=== PATIENT | female | born 1995 | race Caucasian/White ===

== ENCOUNTER 2018-03-16 11:06 | Emergency (ER) | payer MEDICAID ==
--- NOTE | 2018-03-16 12:01 | ED Physician Documentation ---
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 - Present Medications Home Medications: Ambulatory Orders Medication Instructions Recorded Confirmed Norgestimate-Ethinyl Estradiol DAILY 03/16/18 [[id number] Tablet] - Allergies Allergies/Adverse Reactions: Allergies Allergy/AdvReac Type Severity Reaction Status Date / Time amoxicillin Allergy Unknown Verified 03/16/18 11:14 Penicillins Allergy Unknown Verified 03/16/18 11:14 - Social History Does the pt smoke?: Yes Smoking Status: Current some day smoker Does the pt drink ETOH?: Yes Does the pt have substance abuse?: No Substance Use and Type: Marijuana - Immunizations Immunizations are current?: Yes Results - Vitals Vitals: Vital Signs - 24 hr 03/16/18 11:09 Temperature 36.7 C Heart Rate 74 Respiratory 16 Rate Blood Pressure 135/91 H O2 Saturation 100 Oxygen O2 Source Room air
--- NOTE | 2018-03-16 12:27 | ED Physician Documentation ---
PD HPI NVD - Stated complaint Stated Complaint: VOMITING/ABD PX/FEMALE - Chief complaint Chief Complaint: Abd Pain - History obtained from History obtained from: Patient - History of Present Illness Timing - onset: How many days ago (3) Timing - duration: Days (3) Timing - details: Gradual onset, Still present, Intermittant Associated symptoms: Abdominal pain, Hematemesis (Lastweek had one episode of blood-streaked vomiting), Vaginal bleeding, Vaginal dc (Thin white and was checked for STD which was negative), Other (Intermittent pain with sex since she had a D&C when she was 18 years old). No: Fever, Chest pain, Melena, Hematochezia, Dizzy, Dysuria, Hematuria Improved by: Other Worsened by: Eating (Drinking water and smoking marijuana) Similar symptoms before: Work up / diagnostics (Colonoscopy is 18 years of age and was diagnosed to have IBS) Recently seen: Not recently seen - Additonal information Additional information: 22-year-old female with history of chronic nausea and left upper abdominal pain since she was 18 years old where she had a full workup including a colonoscopy and was diagnosed to have IBS. 3 years ago she was prescribed medical marijuana in [place]. She has not had medical marijuana for over a year. Says she smokes marijuana daily which helps her nausea. She is here today with complaint of nausea, vomiting, diarrhea the past 3 days. She describes the vomiting as watery which by drinking water she feels better. She describes the stool as watery diarrhea with no blood. Last month she had one episode of blood-streaked with her vomiting.Patient also claims 3 months ago she has a different control that was prescribed to her. The past 3 weeks she has been having vaginal bleeding and it stopped 2 days ago she is requesting for test. She states she has been with one sexual partner. But they are not using condoms.She claims she has been having intermittent pain with sex since she had a D&C when she was 18 years old. Review of Systems Ten Systems: 10 systems reviewed and negative Constitutional: denies: Fever, Weight Loss Cardiac: denies: Chest pain / pressure Respiratory: denies: Dyspnea GI: reports: Abdominal Pain, Nausea, Vomiting, Diarrhea, Hematemesis. denies: Constipation, Bloody / black stool : reports: Incontinent, Discharge, Vaginal bleeding, Control. 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 - Present Medications Home Medications: Ambulatory Orders Medication Instructions Recorded Confirmed Norgestimate-Ethinyl Estradiol DAILY 03/16/18 [[id number] Tablet] - Allergies Allergies/Adverse Reactions: Allergies Allergy/AdvReac Type Severity Reaction Status Date / Time amoxicillin Allergy Unknown Verified 03/16/18 11:14 Penicillins Allergy Unknown Verified 03/16/18 11:14 - Social History Does the pt smoke?: Yes Smoking Status: Current some day smoker Does the pt drink ETOH?: Yes Does the pt have substance abuse?: No Substance Use and Type: Marijuana - Immunizations Immunizations are current?: Yes PD ED PE NORMAL - Vitals Vital signs reviewed: Yes - General General: Alert and oriented X 3, No acute distress, Well developed/nourished - HEENT HEENT: Moist mucous membranes, Pharynx benign - Neck Neck: Supple, no meningeal sign - Cardiac Cardiac: RRR, No murmur - Respiratory Respiratory: No respiratory distress, Clear bilaterally - Abdomen Abdomen: Normal bowel sounds, Soft, Non distended, Other (Mild left lower quadrant pain. No rebound no rigidity nor guarding.) - Derm Derm: Warm and dry - Extremities Extremities: No deformity - Neuro Neuro: Alert and oriented X 3 - Psych Psych: Normal mood, Normal affect Results - Vitals Vitals: Vital Signs - 24 hr 03/16/18 11:09 Temperature 36.7 C Heart Rate 74 Respiratory 16 Rate Blood Pressure 135/91 H O2 Saturation 100 Oxygen O2 Source Room air - Labs Labs: Laboratory Tests 03/16/18 03/16/18 03/16/18 12:30 12:30 12:52 WBC 7.2 RBC 4.53 Hgb 13.5 Hct 39.2 MCV 86.5 MCH 29.7 MCHC 34.4 RDW 12.6 Plt Count 280 MPV 7.0 L Neut # (Auto) 4.8 Lymph # (Auto) 1.8 [place] # (Auto) 0.5 Eos # (Auto) 0.1 Baso # (Auto) 0.1 Absolute Nucleated RBC 0.01 Nucleated RBC % 0.1 Sodium Potassium Chloride Carbon Dioxide Anion Gap BUN Creatinine Estimated GFR (MDRD) Glucose Calcium Total Bilirubin AST ALT Alkaline Phosphatase Total Protein Albumin Globulin Albumin/Globulin Ratio Lipase Urine Color YELLOW Urine Clarity CLEAR Urine pH 5.5 Ur Specific [place] >=1.030 H >=1.030 H Urine Protein NEGATIVE Urine Glucose (UA) NEGATIVE Urine Ketones NEGATIVE Urine Occult Blood SMALL H Urine Nitrite NEGATIVE Urine Bilirubin NEGATIVE Urine Urobilinogen 0.2 (NORMAL) Ur Leukocyte Esterase NEGATIVE Urine RBC 0-5 Urine WBC 0-3 Ur Squamous Epith Cells FEW Squamous Urine Bacteria Few Ur Microscopic Review INDICATED Urine Culture Comments NOT INDICATED Urine HCG, Qual NEGATIVE 03/16/18 12:52 WBC RBC Hgb Hct MCV MCH MCHC RDW Plt Count MPV Neut # (Auto) Lymph # (Auto) [place] # (Auto) Eos # (Auto) Baso # (Auto) Absolute Nucleated RBC Nucleated RBC % Sodium 133 L Potassium 3.6 Chloride 103 Carbon Dioxide 23 Anion Gap 7.0 BUN 18 Creatinine 0.9 Estimated GFR (MDRD) 79 L Glucose 88 Calcium 9.2 Total Bilirubin 1.1 H AST 20 ALT 15 Alkaline Phosphatase 39 L Total Protein 7.9 Albumin 4.9 Globulin 3.0 Albumin/Globulin Ratio 1.6 Lipase 32 Urine Color Urine Clarity Urine pH Ur Specific [place] Urine Protein Urine Glucose (UA) Urine Ketones Urine Occult Blood Urine Nitrite Urine Bilirubin Urine Urobilinogen Ur Leukocyte Esterase Urine RBC Urine WBC Ur Squamous Epith Cells Urine Bacteria Ur Microscopic Review Urine Culture Comments Urine HCG, Qual PD MEDICAL DECISION MAKING - ED course Complexity details: reviewed results, re-evaluated patient ([id number] stated feeling better and wants to go home. Abdomen soft and nontender. Patient claims she did not even have to take the Zofran because her nausea went away by itself. Patient does not want to be discharged on Zofran ODT as it makes her more nauseous due to the taste. Patient requesting resources for outpatient mental health and gynecology. She stated she does not want any radiological workup at this time.), considered differential (Chronic nausea,Gastroenteritis, obstruction, , UTI, STD,Dehydration), d/w patient Departure - Departure Disposition: 01 Home, Self Care Clinical Impression: Abdominal pain Qualifiers: Abdominal location: left lower quadrant Qualified Code(s): R10.32 - Left lower quadrant pain Diarrhea Qualifiers: Diarrhea type: unspecified type Qualified Code(s): R19.7 - Diarrhea, unspecified Vomiting Qualifiers: Vomiting type: cyclical vomiting Vomiting Intractability: non-intractable Nausea presence: with nausea Qualified Code(s): G43.A0 - Cyclical vomiting, not intractable Condition: Stable Instructions: ED Abdominal Pain Unkn Cause, ED Diet Vomiting Diarrhea Comments: Follow-up with your primary doctor for reevaluation. Clear liquids today. Advance to brat diet (bananas, rice, applesauce, toast or crackers). Drink fluids and eat in small amounts but frequently. If tolerated advance to bland diet. If worse return to the emergency room.
[2018-03-16] MEDS: SODIUM CHLORIDE 0.9% 1,000 ML IV ONE (12:55)
[2018-03-16 13:01] LABS: BASOPHILS # (AUTO) 0.1 10^3/uL (0.0-0.1); BASOPHILS % (AUTO) 0.7 %; EOSINOPHILS # (AUTO) 0.1 10^3/uL (0.0-0.7); HGB - HEMOGLOBIN 13.5 g/dL (12.0-16.0); LYMPHOCYTES # (AUTO) 1.8 10^3/uL (1.5-3.5); LYMPHOCYTES % (AUTO) 25.4 %; MEAN CORPUSCULAR HEMOGLOBIN 29.7 pg (27.0-31.0); MEAN CORPUSCULAR HGB CONC 34.4 g/dL (32.0-36.0); MEAN CORPUSCULAR VOLUME 86.5 fL (81.0-99.0); MONOCYTES # (AUTO) 0.5 10^3/uL (0.0-1.0); MONOCYTES % (AUTO) 6.7 %; NEUTROPHILS # (AUTO) 4.8 10^3/uL (1.5-6.6); NEUTROPHILS % (AUTO) 66.2 %; PLT - PLATELET COUNT 280 10^3/uL (130-450); RED BLOOD COUNT 4.53 10^6/uL (4.20-5.40); RED CELL DISTRIBUTION WIDTH 12.6 % (12.0-15.0); WHITE BLOOD COUNT 7.2 x10^3/uL (4.8-10.8)
[2018-03-16 13:06] LABS: BILIRUBIN,URINE NEGATIVE (NEGATIVE); GLUCOSE, URINE (UA) NEGATIVE (NEGATIVE); KETONES,URINE (UA) NEGATIVE (NEGATIVE); LEUKOCYTE ESTERASE, URINE NEGATIVE (NEGATIVE); NITRITE,URINE NEGATIVE (NEGATIVE); OCCULT BLOOD,URINE SMALL (NEGATIVE); PH,URINE 5.5 PH (5.0-7.5); PROTEIN,URINE NEGATIVE (NEGATIVE); UROBILINOGEN,URINE 0.2 (NORMAL) E.U./dL (NORMAL)
[2018-03-16 13:07] LABS: CLARITY,URINE CLEAR (CLEAR); HCG UR QUAL NEGATIVE
[2018-03-16 13:13] LABS: ALBUMIN 4.9 g/dL (3.2-5.5); ALBUMIN/GLOBULIN RATIO 1.6 (1.0-2.2); BILIRUBIN,TOTAL 1.1 mg/dL (0.2-1.0); CALCIUM 9.2 mg/dL (8.5-10.3); CREATININE 0.9 mg/dL (0.4-1.0); TOTAL PROTEIN 7.9 g/dL (6.7-8.2)
[2018-03-16 13:14] LABS: BACTERIA,URINE Few /HPF (None Seen); RBC,URINE 0-5 /HPF (0-5); SQUAMOUS EPITHELIAL CELL,UR FEW Squamous (<= Few)
[2018-03-16] MEDS: ONDANSETRON 4 MG/2 ML VIAL IVP STA (14:03)
[2018-03-16 15:09] VITALS: BP 144/89
== END 2018-03-16 16:48 | disposition home or self-care (01) ==
LOC: ED 11:06
DX: R10.32 Left lower quadrant pain (principal); R19.7 Diarrhea, unspecified; G43.A0 Cyclical vomiting, in migraine, not intractable; F17.200 Nicotine dependence, unspecified, uncomplicated
CPT/HCPCS: 36415; 80053; 81001; 81003; 81025; 83690; 85025; 87086; 87210; 87491; 87591; 96360; 99283; 99284

== ENCOUNTER 2023-05-02 12:45 | Emergency (ER) | payer MEDICAID ==
[2023-05-02 13:02] VITALS: O2SAT 99
--- NOTE | 2023-05-02 13:47 | XRAY Report ---
PROCEDURE: Wrist 3+V LT INDICATIONS: fall TECHNIQUE: 3 views of the wrist were acquired. COMPARISON: None. FINDINGS: Bones: No fractures or dislocations. No suspicious bony lesions. Soft tissues: No suspicious soft tissue calcifications or masses. IMPRESSION: No acute bony abnormality can be seen on these plain films. Please correlate with focal tenderness. If there is point tenderness (or other clinical concern for a fracture not seen on these plain films) then please consider a dedicated CT study or a short term fo llow up plain film series for further evaluation. Reviewed by: Lonnie Fraser MD on 05/02/2023 12:46 PM [facility] Approved by: Lonnie Fraser MD on 05/02/2023 12:46 PM [facility] Station ID: [id number]
[2023-05-02] MEDS ORDERED: IBUPROFEN 800 MG TABLET PO STA (16:54)
--- NOTE | 2023-05-02 16:55 | ED Physician Documentation ---
PD HPI UPPER EXT INJURY - Stated complaint Stated Complaint: LFT WRIST INJ - Chief complaint Chief Complaint: Trauma Ext - History obtained from History obtained from: Patient - Additonal information Additional information: Patient is a 27-year-old female with no significant prior medical history presenting for evaluation of left wrist injury. Patient states that she fell out of a chair last night and hit her wrist. She denies hitting her head or having LOC. She does not take a blood thinner. She denies injury or pain elsewhere. 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 - Present Medications Home Medications: Ambulatory Orders Medication Instructions Recorded Confirmed norgestimate-ethinyl estradioL DAILY 03/16/18 [[id number] Tablet] - Allergies Allergies/Adverse Reactions: Allergies Allergy/AdvReac Type Severity Reaction Status Date / Time amoxicillin Allergy Unknown Verified 03/16/18 11:14 Penicillins Allergy Unknown Verified 03/16/18 11:14 - Social History Does the pt smoke?: No Smoking Status: Never smoker Does the pt drink ETOH?: No Does the pt have substance abuse?: Yes Substance Use and Type: Marijuana - Immunizations Immunizations are current?: Yes PD ED PE NORMAL - General General: Alert and oriented X 3, No acute distress, Well developed/nourished - HEENT HEENT: Atraumatic, Moist mucous membranes - Respiratory Respiratory: No respiratory distress - Derm Derm: Warm and dry - Extremities Extremities: Other (Tenderness to lateral left wrist, no snuffbox tenderness, no bruising or deformity, normal range of motion at digits and no tenderness over hand, strong radial pulse, good cap refill in digits) Results - Vitals Vitals: Vital Signs - 24 hr 05/02/23 05/02/23 12:52 17:19 Temperature 36.0 C L Heart Rate 85 81 Respiratory 16 18 Rate Blood Pressure 143/101 H 143/100 H O2 Saturation 99 99 Oxygen O2 Source Room air PD Medical Decision Making - ED course Complexity details: reviewed results, d/w patient ED course: Patient is a 27-year-old female presenting for evaluation of left wrist pain after a fall yesterday. Her x-ray which I reviewed is negative for fracture or dislocation but she does have tenderness in the snuffbox region. Therefore we h ave placed her into a thumb spica. She understands the need for close follow-up if her symptoms or not improving. She understands that she could have a fracture that is not visualized on the x-ray so she should continue to wear the splint while she is having pain. No injuries noted elsewhere. Neurovascularly intact. No open wounds. Patient counseled on concerning symptoms to return for. Departure - Departure Disposition: 01 Home, Self Care Clinical Impression: Left wrist injury Condition: Stable Instructions: ED Fx Wrist Navicular Poss Comments: Your x-ray does not show a fracture but you are tender in an area that sometimes does not show up right away on an x-ray. Therefore I have placed you into a splint and would recommend close follow-up with her primary care provider or walk-in clinic if your pain is not getting better over the course of the next week as we would expect with a bruise or sprain. Continue with anti- inflammatory such as ibuprofen or acetaminophen, ice, elevation and rest. Return to the emergency department with any worsening symptoms. Forms: PCP List Discharge Date/Time: 05/02/23 17:19
[2023-05-02 17:24] VITALS: BP 143/100
== END 2023-05-02 17:19 | disposition home or self-care (01) ==
LOC: ED 12:45
DX: S69.92XA Unspecified injury of left wrist, hand and finger(s), initial encounter (principal); W07.XXXA Fall from chair, initial encounter
CPT/HCPCS: 73110; 99283; A9270